=== PATIENT | female | born 1940 | race Caucasian/White ===

== ENCOUNTER 2016-10-17 17:12 | Emergency (ER) | payer MEDICARE, BC ==
[2016-10-17 17:31] VITALS: BP 149/84
--- NOTE | 2016-10-17 17:47 | UC ---
Minor Trauma HPI - HPI Summary HPI Summary: Tripped while trying to get around a car in a parking lot this afternoon and fell forward and onto R side. Has bruises on R elbow, R knee, L hand, and R eyebrow. Superficial cut on forehead and abrasions on R elbow and R knee. Does not feel anything is broken, is bearing weight normally. No LOC, vomiting, confusion, or visual changes. Denies dental pain, neck pain, or anticoagulant use. - History of Current Complaint Chief Complaint: UCTrauma Stated Complaint: FELL SCRAPES Time Seen by Provider: 10/17/16 17:34 Hx Obtained From: Patient Hx Last Menstrual Period: menopausal ?: No Onset/Duration: Sudden Onset Onset Of Pain: Immediate Severity Initially: Moderate Severity Currently: Mild Mechanism Of Injury: Fall From A Standing Position Aggravating Factor(s): Nothing Associated Signs And Symptoms: Positive: Ecchymosis, Swelling - Allergies/Home Medications Allergies/Adverse Reactions: Allergies Allergy/AdvReac Type Severity Reaction Status Date / Time Cefuroxime [From Ceftin] Allergy Severe Swelling Verified 10/17/16 17:32 Penicillins Allergy Severe Swelling Verified 10/17/16 17:32 Scopolamine Allergy Severe See Comment Verified 10/17/16 17:32 Erythromycin Allergy Intermediate Abdominal Verified 10/17/16 17:32 Pain Rofecoxib [From Vioxx] Allergy Intermediate Rash Verified 10/17/16 17:32 Environmental Allergies Allergy Intermediate Congestion Uncoded 10/17/16 17:32 PMH/Surg Hx/FS Hx/Imm Hx Respiratory History: Asthma GI/ History: Gall Bladder Disease - Surgical History Surgical History: Yes Surgery Procedure, Year, and Place: Tonsillectomy 1946, [place] Teeth Extraction 1960, Breast Biopsy 1998 (Benign), Colecystectomy 1998, Bilateral Cataracts 2001 ; ENDOMETRIAL BIOPSIES(BENIGN) - Family History Known Family History: Positive: Hypertension - Social History Occupation: Retired Alcohol Use: None Substance Use Type: None Smoking Status (MU): Never Smoked Tobacco Review of Systems Constitutional: Negative Skin: Bruising, Other - abrasions Eyes: Negative ENT: Negative Respiratory: Negative Cardiovascular: Negative Gastrointestinal: Negative Genitourinary: Negative Motor: Negative Neurovascular: Negative Musculoskeletal: Other: - pain in R knee, R elbow, L hand Neurological: Negative Psychological: Negative All Other Systems Reviewed And Are Negative: Yes Physical Exam Triage Information Reviewed: Yes Appearance: Well-Appearing, No Pain Distress, Well-Nourished Vital Signs: Initial Vital Signs Temp 98.6 F 10/17/16 17:19 Pulse 79 10/17/16 17:19 Resp 16 10/17/16 17:19 BP 149/84 10/17/16 17:19 Pulse Ox 98 10/17/16 17:19 Vital Signs Reviewed: Yes Eye Exam: Normal, Other - PERRL Eyes: Positive: Conjunctiva Clear ENT Exam: Normal ENT: Positive: Normal ENT inspection, Hearing grossly normal, Pharynx normal, TMs normal Dental Exam: Normal Neck exam: Normal, Other - no bony tenderness Neck: Positive: Supple, Nontender, No Lymphadenopathy Respiratory Exam: Normal Respiratory: Positive: Chest non-tender, Lungs clear, Normal breath sounds, No respiratory distress, No accessory muscle use Cardiovascular Exam: Normal Cardiovascular: Positive: RRR, No Murmur Musculoskeletal Exam: Other - tender L hand over 3rd and 4th MCs Musculoskeletal: Positive: Strength Intact, ROM Intact, Other: - tender bruises without bony tenderness on R elbow and R knee Neurological Exam: Normal Neurological: Positive: Alert Psychological Exam: Normal Skin Exam: Other - superficial abrasions to forehead, R elbow, R knee. Swollen bruised area to R eyebrow. Minor Trauma Course/Dx - Differential Dx/Diagnosis Provider Diagnoses: Multiple contusions. Multiple abrasions. elevated blood pressure due to discomfort Discharge - Discharge Plan Condition: Stable Disposition: HOME Patient Education Materials: Contusion in Adults (ED), Abrasion (ED) Referrals: Ye Read MD [Primary Care Provider] - Additional Instructions: As we discussed, there is no sign of concussion, broken bones, or other serious illness on exam. I expect you to have soreness, stiffness, and larger bruises tomorrow. However, things should start to improve within a few days. If you have increasing pain or develop problems walking or using your arms/hands, please see your primary care provider or return here.
--- NOTE | 2016-10-17 18:08 | RAD ---
Indication: LEFT hand pain and bruising post fall today. Comparison: No relevant prior exams available on the [facility] for comparison. Technique: AP and lateral views LEFT hand. REPORT AND IMPRESSION: Bone density appears decreased throughout. No cortical disruption or suspicious trabecular irregularity to suggest fracture. Normal articular alignment. Soft tissue swelling which appears most prominent over the dorsum of the hand and at the second finger.
== END 2016-10-17 18:11 | disposition home or self-care (01) ==
LOC: UCEAST 17:12
DX: T14.8 Other injury of unspecified body region (principal); R03.0 Elevated blood-pressure reading, without diagnosis of hypertension; W01.0XXA Fall on same level from slipping, tripping and stumbling without subsequent striking against object, initial encounter; Y92.481 Parking lot as the place of occurrence of the external cause; Z88.0 Allergy status to penicillin
CPT/HCPCS: 99211; G0463